=== PATIENT | female | born 1995 | race Caucasian/White ===

== ENCOUNTER → 2017-02-16 | Outpatient (CLI) | payer OTHER ==
--- NOTE | 2017-02-16 10:13 | MR ---
EXAMINATION TYPE: MR brain wo/w con DATE OF EXAM: 02/16/2017 10:02 AM COMPARISON: Previous study dated 07/31/2016. HISTORY: Vision Change, Fatigue TECHNIQUE: Multiplanar, multiecho imaging of the brain was obtained with and without intravenous adm inistration of 10 mL intravenous MultiHance. FINDINGS: Midline structures are unremarkable. There is a normal craniocervical junction. Echoplanar diffusion imaging is normal. There are normal vascular flow voids. The orbits appear normal. There is no evidence of a CP angle mass lesion. A small focus of increased signal on FLAIR imaging is noted in the faulkner radiata on the right. A sec ond lesion is noted in the centrum semiovale on the right. These are both present previously. There i s no mass effect, midline shift or intracranial blood. Following intravenous administration of gadolinium, I do not see evidence of abnormal enhancement. IMPRESSION: 1. NO ACUTE INTRACRANIAL ABNORMALITY. 2. 2 TINY FOCI OF HYPERINTENSITY WITHIN THE RIGHT CEREBRAL HEMISPHERE. THE LARGEST MEASURES 5 MM. THE SE ARE STABLE IN COMPARISON WITH THE PREVIOUS STUDY BUT OF QUESTIONABLE SIGNIFICANCE.
== END | disposition home or self-care (01) ==
LOC: RADMRIMAIN 09:15
PROVIDERS: ATTEND Psychiatry & Neurology Pain Medicine
DX: R53.83 Other fatigue (principal); H53.8 Other visual disturbances
CPT/HCPCS: 70553; A9577

== ENCOUNTER → 2021-01-10 | Outpatient (CLI) | payer OTHER ==
--- NOTE | 2021-01-10 11:10 | P.PCN ---
Date of Procedure: 01/10/21 Preoperative Diagnosis: Abnormal uterine bleeding Postoperative Diagnosis: Same Procedure(s) Performed: Hysterosalpingogram Anesthesia: none Surgeon: Luz Marina Edmond Estimated Blood Loss (ml): 0 IV fluids (ml): 0 Urine output (ml): 0 Pathology: none sent Condition: stable Disposition: same day Indications for Procedure: This 19-year-old presents with regular menstrual bleeding. Patient notes menstrual cycles to be a regular intervals, 3-5 days occasional midcycle spotting questionable uterine anomaly. Operative Findings: Uterus appears normal in shape and size cavity appears normal with no filling defects the left fallopian tube appears patent the right fallopian tube although no definitive spillage is appreciated no back loss of contrast is appreciated Description of Procedure: Patient was placed on the radiology table and a speculum exam was performed cervix was visualized and washed with Betadine 3. A HSG catheter was then threaded through the cervix toward the uterine cavity the balloon was insufflated with 5 mL of air. Approximately 20 mL of contrast were used with the above-noted findings visualized. After the procedure was completed the catheter bubble was deflated and removed without difficulty. Contrast was noted to be spilling through the cervix. Of note Dr. Yun from radiology was there during the procedure to read the fluoroscopy. Patient did tolerate procedure well findings were discussed with patient after procedure.
--- NOTE | 2021-01-10 13:13 | FL ---
EXAMINATION TYPE: FL hysterosalpingography DATE OF EXAM: 01/10/2021 CLINICAL HISTORY: Infertility over last 2 years. History of one child 4 years old. History of miscarr iage 2019. TECHNIQUE: Fluoroscopy-assisted hysterosalpingogram.Fluoroscopic guidance was provided during hystero salpingogram procedure performed by Dr. Edmond. A total of 1 minute 51 seconds of fluoroscopic time w as utilized during the procedure and 12 spot images are acquired. Approximately 20 cc of Isovue-300 w ere utilized. I was present during OB performance of procedure and assisted in the fluoroscopic digna nce. COMPARISON: CT abdomen and pelvis January 17, 2011. Pelvic ultrasound July 31, 2012. FINDINGS: Preprocedure hospital medicine director image unremarkable. Speculum introduced by paint mixer hand under sterile technique. Betadine used to cleanse cervical os. Ca theter inserted. Balloon inflated. There is successful contrast opacification of the endometrial miky l with slight arcuate configuration. Scattered air bubbles noted. There is good filling of left fallo pian tube and some free spillage, left fallopian tube appears unremarkable. There is less well-visual ized probably due to orientation of the right fallopian tube but some free spillage is felt present. At this point procedure was terminated. The balloon is deflated and catheter is withdrawn by obstetri darlin. Speculum was removed. Patient tolerated procedure well without any immediate complication. Patient left the department shor tly after procedure. IMPRESSION: As Above.
== END | disposition home or self-care (01) ==
LOC: RADUSWWP 10:14
PROVIDERS: ATTEND Obstetrics & Gynecology Obstetrics
DX: N93.8 Other specified abnormal uterine and vaginal bleeding (principal)
CPT/HCPCS: 58340; 74740; Q9967

== ENCOUNTER → 2021-01-30 | Outpatient (CLI) | payer OTHER | END | disposition home or self-care (01) | LOC: LABWHC1 16:22 | PROVIDERS: ATTEND Obstetrics & Gynecology | DX: Z20.822 Contact with and (suspected) exposure to COVID-19 (principal) | CPT/HCPCS: U0003; U0005 ==